=== PATIENT | male | born 1955 | race Caucasian/White ===

== ENCOUNTER 2022-07-06 01:57 | Inpatient (IN) | payer OTHER, MEDICAID ==
[~2022-07-06] VITALS: Ht 172.7 cm; Wt 72.6 kg
[2022-07-06] VITALS (29 sets, daily range): BP systolic 91–119
[~2022-07-06 01:57] MED LIST: CARB400T PO; FOLI-43 PO; MULT-518 PO; NAPR-1172 PO; OLAN20TA3 PO; PARO-148 PO; THIA100T13 PO
[2022-07-06] MEDS ORDERED: NACL 0.9% 1,000 ML IV ONE ×2 (02:15→04:30)
[2022-07-06 02:44] LABS: BASOPHILS # (AUTO) 0.1 K/uL (0.0-0.2); BASOPHILS % (AUTO) 0.3 % (0.0-2.0); HEMATOCRIT 33.2 % (36-54); HEMOGLOBIN 10.9 g/dL (14.0-18.0); LYMPHOCYTES # (AUTO) 1.8 K/uL (1.0-5.5); LYMPHOCYTES % (AUTO) 9.7 % (20.5-51.5); MEAN CORPUSCULAR HEMOGLOBIN 31 pg (27-31); MEAN CORPUSCULAR HGB CONC 33 % (32-36); MEAN CORPUSCULAR VOLUME 95 fL (79.0-98.0); MONOCYTES % (AUTO) 5.2 % (1.7-9.3); NEUTROPHILS # (AUTO) 16.1 K/uL (1.8-7.7); NEUTROPHILS % (AUTO) 84.8 % (40.0-70.0); PLATELET COUNT (AUTO) 362 K/uL (130-430); RED BLOOD CELL COUNT(AUTO) 3.49 MIL/uL (4.2-6.2); RED CELL DISTRIBUTION WIDTH 15.6 % (9.0-15.0)
[2022-07-06] MEDS ORDERED: LACT10SO7 PO (02:45)
[2022-07-06] MEDS ORDERED: ACET-73 PO (02:45)
[2022-07-06] MEDS ORDERED: APIX5TAB PO (02:45)
[2022-07-06] MEDS ORDERED: AMIO200T66 PO (02:45)
[2022-07-06] MEDS ORDERED: BEN50 PO (02:45)
[2022-07-06] MEDS ORDERED: INSU100V7 SUBCUT (02:45)
[2022-07-06] MEDS ORDERED: INSU100V53 SQ (02:45)
[2022-07-06] MEDS ORDERED: METO-442 PO (02:45)
[2022-07-06] MEDS ORDERED: IPRA4AER INH (02:45)
[2022-07-06] MEDS ORDERED: HYDR-4284 PO (02:45)
[2022-07-06] MEDS ORDERED: FURO-149 PO (02:45)
[2022-07-06] MEDS ORDERED: ALBU2.5V7 INH (02:45)
[2022-07-06] MEDS ORDERED: DIAZ10TA4 PO (02:45)
[2022-07-06] MEDS ORDERED: BISA-79 RC (02:45)
[2022-07-06] MEDS ORDERED: FAMO20TA8 PO (02:45)
[2022-07-06] MEDS ORDERED: DIGO125T PO (02:45)
[2022-07-06] MEDS ORDERED: DILT60TA3 PO (02:45)
[2022-07-06] MEDS ORDERED: DOCU-144 PO (02:45)
[2022-07-06] MEDS ORDERED: LEVE500S9 PO (02:45)
[2022-07-06 02:57] LABS: ANION GAP 12 (5-15); CALCIUM 9.9 mg/dL (8.4-11.0); CHLORIDE 116 mmol/L (98-107); CREATININE 1.77 mg/dL (0.55-1.30); GLUCOSE 329 mg/dL (70-99); UREA NITROGEN, BLOOD 48 mg/dL (8-21)
[2022-07-06 03:04] LABS: ALANINE AMINOTRANSFERASE 83 U/L (12-78); ASPARTATE AMINOTRANSFERASE 55 U/L (10-37); TOTAL BILIRUBIN 0.5 mg/dL (0.0-1.0)
[2022-07-06 03:10] LABS: GFR AFRICAN AMERICAN 50 mL/min (>90)
[2022-07-06 04:04] LABS: BILIRUBIN,URINE NEGATIVE (NEGATIVE); BLOOD, URINE 3+ (NEGATIVE); CLARITY/URINE CLEAR (CLEAR); COLOR,URINE YELLOW (YELLOW); GLUCOSE,URINE 1+ (NEGATIVE); KETONES,URINE NEGATIVE (NEGATIVE); LEUKOCYTE ESTERASE ,URINE TRACE (NEGATIVE); NITRITE, URINE NEGATIVE (NEGATIVE); PH,URINE 5.5 (5.0-8.0); PROTEIN URINE 1+ (NEGATIVE); UROBILINOGEN,URINE 0.2 (0.2-1.0)
[2022-07-06 05:03] LABS: DIGOXIN 0.8 ng/mL (0.80-2.00)
[2022-07-06 05:08] LABS: BACTERIA,URINE MODERATE /HPF (None Seen); MUCUS,URINE None Seen /LPF (None Seen); YEAST,URINE None Seen /HPF (None Seen)
[2022-07-06] MEDS ORDERED: D5/0.45 NS 1,000 ML IV SCH (05:30)
[2022-07-06] MEDS ORDERED: PROPOFOL DRIP 100 ML IV ONE ×2 (07:30→08:15)
[2022-07-06] MEDS ORDERED: NOREPINEPHRINE 4 MG/4 ML VIAL IV ONE (08:07)
[2022-07-06] MEDS ORDERED: ETOMIDATE 20 MG/ 10 ML VIAL (AMIDATE) IVP ONE (08:15)
[2022-07-06] MEDS ORDERED: SUCCINYLCHOLINE CHLORIDE 20 MG/ML(QUELICIN) IVP ONE (08:15)
[2022-07-06] MEDS ORDERED: NOREPINEPHRINE BITARTRATE 4 MG in D5W 246 ML IV PRN (09:00)
[2022-07-06] MEDS ORDERED: ENOXAPARIN SODIUM 30 MG/0.3 ML SYRINGE SUBCUT SCH (12:00)
[2022-07-06] MEDS: IPRATROPIUM/ALBUTEROL SULFATE 3 ML AMPUL.NEB (DUONEB) INH SCH ×4 (12:00→22:55)
[2022-07-06] MEDS ORDERED: *LOVENOX 1MG/KG Q12H/PHARMACY XX ONE (12:00)
[2022-07-06] MEDS ORDERED: PANTOPRAZOLE SODIUM 40 MG/VIAL (PROTONIX) IVP ONE (12:30)
[2022-07-06] MEDS ORDERED: ENOXAPARIN SODIUM 80 MG/0.8 ML SYRINGE SUBCUT ONE (13:00)
[2022-07-06] MEDS: PIPERACILLIN/TAZO 3.375/DEX-IS 50 ML IV SCH ×3 (14:05→23:52)
[2022-07-06] MEDS: NACL 0.9% 1,000 ML IV SCH ×2 (14:05→22:00)
[2022-07-06 16:47] LABS: CALCIUM 9.2 mg/dL (8.4-11.0); CREATININE 1.82 mg/dL (0.55-1.30)
[2022-07-06] MEDS: PROPOFOL DRIP 100 ML IV PRN (19:41)
[2022-07-06] MEDS: ACETAMINOPHEN 650 MG/20.3 ML UDC GT PRN (20:06)
[2022-07-06] MEDS: ENOXAPARIN SODIUM 80 MG/0.8 ML SYRINGE SUBCUT SCH (22:06)
[2022-07-07] VITALS (40 sets, daily range): BP systolic 90–123
[2022-07-07] MEDS: INSULIN REGULAR, HUMAN 100 UNITS/ML, 3 ML VIAL (humuLIN R) SUBCUT PRN ×5 (00:07→23:40)
[2022-07-07] MEDS: PROPOFOL DRIP 100 ML IV PRN ×4 (00:52→23:37)
[2022-07-07] MEDS: IPRATROPIUM/ALBUTEROL SULFATE 3 ML AMPUL.NEB (DUONEB) INH SCH ×4 (03:16→23:20)
[2022-07-07] MEDS: ACETAMINOPHEN 650 MG/20.3 ML UDC GT PRN ×2 (04:02→20:13)
[2022-07-07] MEDS ORDERED: ACETAMINOPHEN 650 MG/20.3 ML UDC ONE (04:04)
[2022-07-07] MEDS: PIPERACILLIN/TAZO 3.375/DEX-IS 50 ML IV SCH ×4 (05:23→22:48)
[2022-07-07 06:42] LABS: BASOPHILS # (AUTO) 0.1 K/uL (0.0-0.2); BASOPHILS % (AUTO) 0.4 % (0.0-2.0); EOSINOPHILS % (AUTO) 0.1 % (0.0-4.0); HEMOGLOBIN 9.9 g/dL (14.0-18.0); LYMPHOCYTES # (AUTO) 1.4 K/uL (1.0-5.5); LYMPHOCYTES % (AUTO) 7.2 % (20.5-51.5); MEAN CORPUSCULAR HEMOGLOBIN 31 pg (27-31); MEAN CORPUSCULAR HGB CONC 32 % (32-36); MEAN CORPUSCULAR VOLUME 97 fL (79.0-98.0); MONOCYTES # (AUTO) 0.8 K/uL (0.0-1.0); MONOCYTES % (AUTO) 4.3 % (1.7-9.3); NEUTROPHILS # (AUTO) 16.5 K/uL (1.8-7.7); PLATELET COUNT (AUTO) 333 K/uL (130-430); RED CELL DISTRIBUTION WIDTH 15.6 % (9.0-15.0); WHITE BLOOD COUNT (AUTO) 18.8 K/uL (4.8-10.8)
[2022-07-07 07:06] LABS: CALCIUM 9.1 mg/dL (8.4-11.0); CREATININE 1.65 mg/dL (0.55-1.30); PHOSPHORUS 2.3 mg/dL (2.7-4.5)
[2022-07-07] MEDS: NACL 0.9% 1,000 ML IV SCH (08:00)
[2022-07-07 08:24] LABS: ERYTHROCYTE SEDIMENTATION RATE 78 MM/HR (0-15)
[2022-07-07 09:08] LABS: C-REACTIVE PROTEIN QUANT 52.8 mg/dL (0-0.5)
[2022-07-07] MEDS: PANTOPRAZOLE SODIUM 40 MG/VIAL (PROTONIX) IVP SCH (10:10)
[2022-07-07] MEDS: ENOXAPARIN SODIUM 80 MG/0.8 ML SYRINGE SUBCUT SCH ×2 (10:10→20:12)
[2022-07-07] MEDS: D5W 1,000 ML IV SCH ×2 (12:42→22:48)
[2022-07-07] MEDS ORDERED: KCL 40 mEq in 100 mL (PREMIX) 100 ML IV ONE (12:45)
[2022-07-07] MEDS: NOREPINEPHRINE BITARTRATE 16 MG in NS 234 ML IV PRN (12:49)
[2022-07-07] MEDS ORDERED: DOXYCYCLINE HYCLATE 100 MG CAPSULE PO ONE (13:00)
[2022-07-07] MEDS ORDERED: K PHOS 15 MM in NS 250 ML IV ONE (17:00)
[2022-07-07] MEDS: DOXYCYCLINE HYCLATE 100 MG CAPSULE PO SCH (20:12)
[2022-07-08] VITALS (34 sets, daily range): BP systolic 95–137
[2022-07-08] MEDS: IPRATROPIUM/ALBUTEROL SULFATE 3 ML AMPUL.NEB (DUONEB) INH SCH ×6 (03:35→23:15)
[2022-07-08] MEDS: PROPOFOL DRIP 100 ML IV PRN ×3 (05:42→20:01)
[2022-07-08] MEDS: PIPERACILLIN/TAZO 3.375/DEX-IS 50 ML IV SCH ×4 (05:49→23:10)
[2022-07-08] MEDS: ACETAMINOPHEN 650 MG/20.3 ML UDC GT PRN ×2 (05:50→19:58)
[2022-07-08] MEDS: INSULIN REGULAR, HUMAN 100 UNITS/ML, 3 ML VIAL (humuLIN R) SUBCUT PRN ×4 (05:54→23:11)
[2022-07-08 07:57] LABS: BASOPHILS # (AUTO) 0.2 K/uL (0.0-0.2); BASOPHILS % (AUTO) 1.2 % (0.0-2.0); EOSINOPHILS # (AUTO) 0.4 K/uL (0.0-0.4); EOSINOPHILS % (AUTO) 1.8 % (0.0-4.0); HEMATOCRIT 29.9 % (36-54); HEMOGLOBIN 9.5 g/dL (14.0-18.0); LYMPHOCYTES % (AUTO) 5.3 % (20.5-51.5); MEAN CORPUSCULAR HEMOGLOBIN 31 pg (27-31); MEAN CORPUSCULAR HGB CONC 32 % (32-36); MEAN CORPUSCULAR VOLUME 96 fL (79.0-98.0); MONOCYTES # (AUTO) 0.6 K/uL (0.0-1.0); NEUTROPHILS # (AUTO) 17.5 K/uL (1.8-7.7); NEUTROPHILS % (AUTO) 88.7 % (40.0-70.0); PLATELET COUNT (AUTO) 306 K/uL (130-430); RED CELL DISTRIBUTION WIDTH 15.7 % (9.0-15.0); WHITE BLOOD COUNT (AUTO) 19.8 K/uL (4.8-10.8)
[2022-07-08 08:09] LABS: ALBUMIN 1.3 g/dL (3.4-4.8); BILIRUBIN,DIRECT 0.3 mg/dL (0.0-0.3); CALCIUM 8.8 mg/dL (8.4-11.0); CREATININE 1.52 mg/dL (0.55-1.30); PHOSPHORUS 1.9 mg/dL (2.7-4.5); TOTAL BILIRUBIN 0.4 mg/dL (0.0-1.0)
[2022-07-08] MEDS: ENOXAPARIN SODIUM 80 MG/0.8 ML SYRINGE SUBCUT SCH ×2 (09:14→20:01)
[2022-07-08] MEDS: PANTOPRAZOLE SODIUM 40 MG/VIAL (PROTONIX) IVP SCH (09:14)
[2022-07-08] MEDS: DOXYCYCLINE HYCLATE 100 MG CAPSULE PO SCH ×2 (09:15→20:01)
[2022-07-08] MEDS: D5W 1,000 ML IV SCH ×2 (09:16→18:40)
[2022-07-08 09:48] LABS: C-REACTIVE PROTEIN QUANT 35.4 mg/dL (0-0.5)
[2022-07-08 10:59] LABS: ERYTHROCYTE SEDIMENTATION RATE 77 MM/HR (0-15)
[2022-07-08] MEDS ORDERED: POTASSIUM CHLORIDE 40 MEQ in D5W 250 ML IV ONE (12:00)
[2022-07-08 18:06] LABS: HEPATITIS B CORE AB, TOTAL Negative (Negative); HEPATITIS B SURFACE AG Negative (Negative); HEPATITIS C VIRUS AB Non Reactive (Non Reactive)
[2022-07-09] VITALS (37 sets, daily range): BP systolic 94–142
[2022-07-09] MEDS ORDERED: PROPOFOL DRIP 100 ML IV ONE (03:25)
[2022-07-09] MEDS: IPRATROPIUM/ALBUTEROL SULFATE 3 ML AMPUL.NEB (DUONEB) INH SCH ×6 (03:45→23:21)
[2022-07-09] MEDS: D5W 1,000 ML IV SCH ×2 (04:39→14:52)
[2022-07-09] MEDS: PIPERACILLIN/TAZO 3.375/DEX-IS 50 ML IV SCH ×3 (05:26→17:34)
[2022-07-09] MEDS: INSULIN REGULAR, HUMAN 100 UNITS/ML, 3 ML VIAL (humuLIN R) SUBCUT PRN ×3 (05:29→17:37)
[2022-07-09 06:35] LABS: BASOPHILS # (AUTO) 0.1 K/uL (0.0-0.2); BASOPHILS % (AUTO) 0.6 % (0.0-2.0); EOSINOPHILS # (AUTO) 0.6 K/uL (0.0-0.4); HEMATOCRIT 28.7 % (36-54); LYMPHOCYTES # (AUTO) 1.1 K/uL (1.0-5.5); MEAN CORPUSCULAR HEMOGLOBIN 30 pg (27-31); MEAN CORPUSCULAR HGB CONC 31 % (32-36); MEAN CORPUSCULAR VOLUME 97 fL (79.0-98.0); MONOCYTES # (AUTO) 0.5 K/uL (0.0-1.0); MONOCYTES % (AUTO) 2.6 % (1.7-9.3); NEUTROPHILS # (AUTO) 18.7 K/uL (1.8-7.7); NEUTROPHILS % (AUTO) 88.8 % (40.0-70.0); PLATELET COUNT (AUTO) 295 K/uL (130-430); RED BLOOD CELL COUNT(AUTO) 2.97 MIL/uL (4.2-6.2); RED CELL DISTRIBUTION WIDTH 15.9 % (9.0-15.0)
[2022-07-09 07:20] LABS: ALBUMIN 1.4 g/dL (3.4-4.8); CALCIUM 8.6 mg/dL (8.4-11.0); CREATININE 1.44 mg/dL (0.55-1.30); PHOSPHORUS 2.6 mg/dL (2.7-4.5); TOTAL BILIRUBIN 0.5 mg/dL (0.0-1.0)
[2022-07-09 09:17] LABS: C-REACTIVE PROTEIN QUANT 27.3 mg/dL (0-0.5)
[2022-07-09] MEDS: ENOXAPARIN SODIUM 80 MG/0.8 ML SYRINGE SUBCUT SCH ×2 (09:34→21:41)
[2022-07-09] MEDS: PANTOPRAZOLE SODIUM 40 MG/VIAL (PROTONIX) IVP SCH (09:34)
[2022-07-09] MEDS: DOXYCYCLINE HYCLATE 100 MG CAPSULE PO SCH ×2 (09:34→21:33)
[2022-07-09] MEDS: BALSAM PERU/CASTOR OIL 56.7 GM OINT...G. TP SCH (09:36)
[2022-07-09 10:33] LABS: ERYTHROCYTE SEDIMENTATION RATE 62 MM/HR (0-15)
[2022-07-09] MEDS ORDERED: K PHOS 30 MM in NS 250 ML IV ONE (11:00)
[2022-07-09] MEDS ORDERED: POTASSIUM CHLORIDE 20 MEQ TAB.PRT.SR PO ONE (12:00)
[2022-07-09] MEDS ORDERED: KCL 40 mEq in 100 mL (PREMIX) 100 ML IV ONE (16:00)
[2022-07-09] MEDS: NOREPINEPHRINE BITARTRATE 16 MG in NS 234 ML IV PRN (17:38)
[2022-07-09] MEDS: PROPOFOL DRIP 100 ML IV PRN (18:37)
[2022-07-10] VITALS (35 sets, daily range): BP systolic 99–133
[2022-07-10] MEDS: PIPERACILLIN/TAZO 3.375/DEX-IS 50 ML IV SCH ×2 (02:21→05:43)
[2022-07-10] MEDS: D5W 1,000 ML IV SCH (02:22)
[2022-07-10] MEDS: PROPOFOL DRIP 100 ML IV PRN ×5 (02:24→18:59)
[2022-07-10] MEDS: INSULIN REGULAR, HUMAN 100 UNITS/ML, 3 ML VIAL (humuLIN R) SUBCUT PRN ×5 (02:35→23:45)
[2022-07-10] MEDS: IPRATROPIUM/ALBUTEROL SULFATE 3 ML AMPUL.NEB (DUONEB) INH SCH ×7 (03:20→23:15)
[2022-07-10 06:41] LABS: BASOPHILS # (AUTO) 0.1 K/uL (0.0-0.2); BASOPHILS % (AUTO) 0.4 % (0.0-2.0); EOSINOPHILS # (AUTO) 0.6 K/uL (0.0-0.4); EOSINOPHILS % (AUTO) 3.1 % (0.0-4.0); HEMATOCRIT 28.3 % (36-54); LYMPHOCYTES % (AUTO) 5.6 % (20.5-51.5); MEAN CORPUSCULAR HEMOGLOBIN 31 pg (27-31); MEAN CORPUSCULAR HGB CONC 32 % (32-36); MEAN CORPUSCULAR VOLUME 97 fL (79.0-98.0); MONOCYTES # (AUTO) 0.6 K/uL (0.0-1.0); MONOCYTES % (AUTO) 3.5 % (1.7-9.3); NEUTROPHILS # (AUTO) 15.9 K/uL (1.8-7.7); NEUTROPHILS % (AUTO) 87.4 % (40.0-70.0); PLATELET COUNT (AUTO) 259 K/uL (130-430); RED BLOOD CELL COUNT(AUTO) 2.91 MIL/uL (4.2-6.2); RED CELL DISTRIBUTION WIDTH 15.5 % (9.0-15.0); WHITE BLOOD COUNT (AUTO) 18.1 K/uL (4.8-10.8)
[2022-07-10 07:51] LABS: ERYTHROCYTE SEDIMENTATION RATE 67 MM/HR (0-15)
[2022-07-10] MEDS: LEVOFLOXACIN 250 MG/D5W 50 ML IV SCH (09:14)
[2022-07-10] MEDS: PANTOPRAZOLE SODIUM 40 MG/VIAL (PROTONIX) IVP SCH (09:14)
[2022-07-10] MEDS: DOXYCYCLINE HYCLATE 100 MG CAPSULE PO SCH ×2 (09:16→22:20)
[2022-07-10] MEDS: BALSAM PERU/CASTOR OIL 56.7 GM OINT...G. TP SCH (09:16)
[2022-07-10] MEDS: ENOXAPARIN SODIUM 80 MG/0.8 ML SYRINGE SUBCUT SCH ×2 (09:17→22:21)
[2022-07-10 09:40] LABS: ALBUMIN 1.3 g/dL (3.4-4.8); C-REACTIVE PROTEIN QUANT 24.9 mg/dL (0-0.5); CALCIUM 8.5 mg/dL (8.4-11.0); CREATININE 1.38 mg/dL (0.55-1.30); PHOSPHORUS 3.4 mg/dL (2.7-4.5); TOTAL BILIRUBIN 0.4 mg/dL (0.0-1.0)
[2022-07-10] MEDS: NOREPINEPHRINE BITARTRATE 16 MG in NS 234 ML IV PRN (11:46)
[2022-07-10] MEDS ORDERED: INSULIN NPH 100 UNITS/ML 10 ML VIAL SUBCUT ONE ×2 (13:45→14:00)
[2022-07-10] MEDS ORDERED: METOPROLOL TARTRATE 25 MG TABLET NG ONE (16:45)
[2022-07-10] MEDS ORDERED: DIGOXIN 0.5 MG/2 ML AMP IVP ONE (17:30)
[2022-07-10] MEDS: ACETAMINOPHEN 650 MG/20.3 ML UDC GT PRN (17:41)
[2022-07-10] MEDS ORDERED: INSULIN NPH 100 UNITS/ML 10 ML VIAL SUBCUT SCH ×2 (21:00)
[2022-07-10] MEDS ORDERED: INSULIN GLARGINE 100 UNITS/ML, 10 ML VIAL SUBCUT SCH (21:00)
[2022-07-11] VITALS (32 sets, daily range): BP systolic 90–126
[2022-07-11] MEDS ORDERED: METOPROLOL TARTRATE 25 MG TABLET NG SCH
[2022-07-11] MEDS: IPRATROPIUM/ALBUTEROL SULFATE 3 ML AMPUL.NEB (DUONEB) INH SCH ×6 (03:21→23:34)
[2022-07-11] MEDS ORDERED: INSULIN GLARGINE 100 UNITS/ML, 10 ML VIAL SUBCUT SCH (09:00)
[2022-07-11] MEDS: INSULIN NPH 100 UNITS/ML 10 ML VIAL SUBCUT SCH ×2 (09:00→21:16)
[2022-07-11] MEDS: BALSAM PERU/CASTOR OIL 56.7 GM OINT...G. TP SCH (09:00)
[2022-07-11 09:21] LABS: C-REACTIVE PROTEIN QUANT 16.9 mg/dL (0-0.5); CALCIUM 9.1 mg/dL (8.4-11.0); CREATININE 1.35 mg/dL (0.55-1.30)
[2022-07-11] MEDS: LEVOFLOXACIN 250 MG/D5W 50 ML IV SCH (09:32)
[2022-07-11] MEDS: PANTOPRAZOLE SODIUM 40 MG/VIAL (PROTONIX) IVP SCH (09:33)
[2022-07-11] MEDS: DOXYCYCLINE HYCLATE 100 MG CAPSULE PO SCH ×2 (09:33→21:15)
[2022-07-11] MEDS: ENOXAPARIN SODIUM 80 MG/0.8 ML SYRINGE SUBCUT SCH ×2 (09:34→21:15)
[2022-07-11 10:18] LABS: BASOPHILS # (AUTO) 0.2 K/uL (0.0-0.2); BASOPHILS % (AUTO) 1.3 % (0.0-2.0); EOSINOPHILS # (AUTO) 0.4 K/uL (0.0-0.4); EOSINOPHILS % (AUTO) 2.7 % (0.0-4.0); HEMATOCRIT 30.5 % (36-54); HEMOGLOBIN 9.7 g/dL (14.0-18.0); LYMPHOCYTES # (AUTO) 1.5 K/uL (1.0-5.5); LYMPHOCYTES % (AUTO) 10.1 % (20.5-51.5); MEAN CORPUSCULAR HEMOGLOBIN 30 pg (27-31); MEAN CORPUSCULAR HGB CONC 32 % (32-36); MEAN CORPUSCULAR VOLUME 95 fL (79.0-98.0); MONOCYTES # (AUTO) 0.6 K/uL (0.0-1.0); NEUTROPHILS # (AUTO) 12.3 K/uL (1.8-7.7); NEUTROPHILS % (AUTO) 81.9 % (40.0-70.0); PLATELET COUNT (AUTO) 279 K/uL (130-430); RED BLOOD CELL COUNT(AUTO) 3.21 MIL/uL (4.2-6.2); RED CELL DISTRIBUTION WIDTH 15.6 % (9.0-15.0)
[2022-07-11 10:22] LABS: ERYTHROCYTE SEDIMENTATION RATE 85 MM/HR (0-15)
[2022-07-11] MEDS ORDERED: INSULIN REGULAR, HUMAN 100 UNITS/ML, 3 ML VIAL SUBCUT SCH (12:00)
[2022-07-11] MEDS: PROPOFOL DRIP 100 ML IV PRN ×2 (12:14→17:02)
[2022-07-11] MEDS: INSULIN REGULAR, HUMAN 100 UNITS/ML, 3 ML VIAL (humuLIN R) SUBCUT PRN ×2 (12:49→17:16)
[2022-07-11] MEDS: 0.45% NACL 1,000 ML IV SCH ×2 (12:53→21:19)
[2022-07-11] MEDS: ACETAMINOPHEN 650 MG/20.3 ML UDC GT PRN (14:28)
[2022-07-12] VITALS (33 sets, daily range): BP systolic 85–126
[2022-07-12] MEDS: IPRATROPIUM/ALBUTEROL SULFATE 3 ML AMPUL.NEB (DUONEB) INH SCH ×6 (03:57→23:09)
[2022-07-12] MEDS: 0.45% NACL 1,000 ML IV SCH ×2 (05:52→17:25)
[2022-07-12] MEDS: INSULIN REGULAR, HUMAN 100 UNITS/ML, 3 ML VIAL (humuLIN R) SUBCUT PRN ×3 (06:01→18:12)
[2022-07-12 06:46] LABS: EOSINOPHILS # (AUTO) 0.4 K/uL (0.0-0.4); HEMATOCRIT 29.5 % (36-54); HEMOGLOBIN 9.6 g/dL (14.0-18.0); LYMPHOCYTES # (AUTO) 2.5 K/uL (1.0-5.5); LYMPHOCYTES % (AUTO) 17.4 % (20.5-51.5); MEAN CORPUSCULAR HEMOGLOBIN 31 pg (27-31); MEAN CORPUSCULAR HGB CONC 33 % (32-36); MEAN CORPUSCULAR VOLUME 95 fL (79.0-98.0); MONOCYTES # (AUTO) 0.7 K/uL (0.0-1.0); MONOCYTES % (AUTO) 5.1 % (1.7-9.3); PLATELET COUNT (AUTO) 280 K/uL (130-430); RED BLOOD CELL COUNT(AUTO) 3.11 MIL/uL (4.2-6.2); RED CELL DISTRIBUTION WIDTH 15.4 % (9.0-15.0); WHITE BLOOD COUNT (AUTO) 14.6 K/uL (4.8-10.8)
[2022-07-12 07:29] LABS: ALBUMIN 1.5 g/dL (3.4-4.8); C-REACTIVE PROTEIN QUANT 7.6 mg/dL (0-0.5); CREATININE 1.34 mg/dL (0.55-1.30); PHOSPHORUS 2.8 mg/dL (2.7-4.5); TOTAL BILIRUBIN 0.3 mg/dL (0.0-1.0)
[2022-07-12] MEDS: NOREPINEPHRINE BITARTRATE 16 MG in NS 234 ML IV PRN (07:50)
[2022-07-12 07:58] LABS: BASOPHILS % (AUTO) 0.5 % (0.0-2.0)
[2022-07-12 08:01] LABS: NEUTROPHILS # (AUTO) 10.8 K/uL (1.8-7.7)
[2022-07-12] MEDS: INSULIN NPH 100 UNITS/ML 10 ML VIAL SUBCUT SCH ×2 (09:28→21:45)
[2022-07-12] MEDS: PANTOPRAZOLE SODIUM 40 MG/VIAL (PROTONIX) IVP SCH (09:29)
[2022-07-12] MEDS: DOXYCYCLINE HYCLATE 100 MG CAPSULE PO SCH ×2 (09:29→20:14)
[2022-07-12] MEDS: ENOXAPARIN SODIUM 80 MG/0.8 ML SYRINGE SUBCUT SCH ×2 (09:29→20:15)
[2022-07-12] MEDS: LEVOFLOXACIN 250 MG/D5W 50 ML IV SCH (09:29)
[2022-07-12] MEDS: BALSAM PERU/CASTOR OIL 56.7 GM OINT...G. TP SCH (09:30)
[2022-07-12] MEDS ORDERED: POTASSIUM CHLORIDE 20 MEQ TAB.PRT.SR NG ONE (09:45)
[2022-07-12] MEDS ORDERED: POTASSIUM CHLORIDE 20 MEQ/PKT PACKET NG ONE (10:00)
[2022-07-12 10:27] LABS: ERYTHROCYTE SEDIMENTATION RATE 68 MM/HR (0-15)
[2022-07-12] MEDS: PROPOFOL DRIP 100 ML IV PRN ×3 (10:39→21:26)
[2022-07-12] MEDS ORDERED: DILTIAZEM HCL 30 MG TABLET PO ONE (14:00)
[2022-07-12] MEDS: DILTIAZEM HCL 30 MG TABLET PO SCH (18:11)
[2022-07-13] VITALS (34 sets, daily range): BP systolic 84–132
[2022-07-13] MEDS: DILTIAZEM HCL 30 MG TABLET PO SCH ×5 (00:40→23:51)
[2022-07-13] MEDS: PROPOFOL DRIP 100 ML IV PRN ×3 (02:38→14:06)
[2022-07-13] MEDS: IPRATROPIUM/ALBUTEROL SULFATE 3 ML AMPUL.NEB (DUONEB) INH SCH ×6 (03:06→23:11)
[2022-07-13] MEDS: 0.45% NACL 1,000 ML IV SCH ×3 (03:15→23:50)
[2022-07-13] MEDS: INSULIN REGULAR, HUMAN 100 UNITS/ML, 3 ML VIAL (humuLIN R) SUBCUT PRN ×4 (06:11→21:02)
[2022-07-13 06:50] LABS: BASOPHILS # (AUTO) 0.1 K/uL (0.0-0.2); BASOPHILS % (AUTO) 0.5 % (0.0-2.0); EOSINOPHILS # (AUTO) 0.4 K/uL (0.0-0.4); EOSINOPHILS % (AUTO) 2.6 % (0.0-4.0); HEMATOCRIT 27.2 % (36-54); HEMOGLOBIN 8.7 g/dL (14.0-18.0); LYMPHOCYTES # (AUTO) 2.2 K/uL (1.0-5.5); LYMPHOCYTES % (AUTO) 14.3 % (20.5-51.5); MEAN CORPUSCULAR HEMOGLOBIN 30 pg (27-31); MEAN CORPUSCULAR HGB CONC 32 % (32-36); MEAN CORPUSCULAR VOLUME 95 fL (79.0-98.0); MONOCYTES # (AUTO) 0.6 K/uL (0.0-1.0); MONOCYTES % (AUTO) 4.3 % (1.7-9.3); NEUTROPHILS # (AUTO) 11.8 K/uL (1.8-7.7); NEUTROPHILS % (AUTO) 78.3 % (40.0-70.0); PLATELET COUNT (AUTO) 292 K/uL (130-430); RED BLOOD CELL COUNT(AUTO) 2.86 MIL/uL (4.2-6.2); RED CELL DISTRIBUTION WIDTH 15.6 % (9.0-15.0); WHITE BLOOD COUNT (AUTO) 15.1 K/uL (4.8-10.8)
[2022-07-13 06:56] LABS: C-REACTIVE PROTEIN QUANT 3.6 mg/dL (0-0.5); CALCIUM 8.3 mg/dL (8.4-11.0); CREATININE 1.1 mg/dL (0.55-1.30)
[2022-07-13 08:27] LABS: ERYTHROCYTE SEDIMENTATION RATE 57 MM/HR (0-15)
[2022-07-13] MEDS: INSULIN NPH 100 UNITS/ML 10 ML VIAL SUBCUT SCH ×2 (08:56→20:58)
[2022-07-13] MEDS: ENOXAPARIN SODIUM 80 MG/0.8 ML SYRINGE SUBCUT SCH ×2 (08:57→20:59)
[2022-07-13] MEDS: PANTOPRAZOLE SODIUM 40 MG/VIAL (PROTONIX) IVP SCH (08:58)
[2022-07-13] MEDS: DOXYCYCLINE HYCLATE 100 MG CAPSULE PO SCH ×2 (08:58→20:56)
[2022-07-13] MEDS: LEVOFLOXACIN 250 MG/D5W 50 ML IV SCH (08:58)
[2022-07-13] MEDS: BALSAM PERU/CASTOR OIL 56.7 GM OINT...G. TP SCH (08:58)
[2022-07-13] MEDS ORDERED: POTASSIUM CHLORIDE 40 MEQ in NS 250 ML IV ONE (11:00)
[2022-07-13] MEDS: ACETAMINOPHEN 650 MG/20.3 ML UDC GT PRN (13:06)
[2022-07-13] MEDS: NOREPINEPHRINE BITARTRATE 16 MG in NS 234 ML IV PRN (14:43)
[2022-07-14] VITALS (33 sets, daily range): BP systolic 92–132
[2022-07-14] MEDS: IPRATROPIUM/ALBUTEROL SULFATE 3 ML AMPUL.NEB (DUONEB) INH SCH ×4 (03:39→14:56)
[2022-07-14] MEDS: DILTIAZEM HCL 30 MG TABLET PO SCH ×3 (05:48→17:55)
[2022-07-14 06:50] LABS: BASOPHILS # (AUTO) 0.1 K/uL (0.0-0.2); BASOPHILS % (AUTO) 0.8 % (0.0-2.0); EOSINOPHILS # (AUTO) 0.2 K/uL (0.0-0.4); EOSINOPHILS % (AUTO) 1.5 % (0.0-4.0); HEMATOCRIT 27.8 % (36-54); HEMOGLOBIN 8.9 g/dL (14.0-18.0); LYMPHOCYTES # (AUTO) 2.2 K/uL (1.0-5.5); LYMPHOCYTES % (AUTO) 14.8 % (20.5-51.5); MEAN CORPUSCULAR HEMOGLOBIN 30 pg (27-31); MEAN CORPUSCULAR HGB CONC 32 % (32-36); MEAN CORPUSCULAR VOLUME 94 fL (79.0-98.0); MONOCYTES # (AUTO) 0.5 K/uL (0.0-1.0); MONOCYTES % (AUTO) 3.6 % (1.7-9.3); NEUTROPHILS # (AUTO) 11.6 K/uL (1.8-7.7); NEUTROPHILS % (AUTO) 79.3 % (40.0-70.0); PLATELET COUNT (AUTO) 314 K/uL (130-430); RED BLOOD CELL COUNT(AUTO) 2.95 MIL/uL (4.2-6.2); RED CELL DISTRIBUTION WIDTH 15.5 % (9.0-15.0); WHITE BLOOD COUNT (AUTO) 14.7 K/uL (4.8-10.8)
[2022-07-14 07:17] LABS: ERYTHROCYTE SEDIMENTATION RATE 60 MM/HR (0-15)
[2022-07-14 07:21] LABS: C-REACTIVE PROTEIN QUANT 3.5 mg/dL (0-0.5); CALCIUM 8.4 mg/dL (8.4-11.0); CREATININE 0.96 mg/dL (0.55-1.30); PHOSPHORUS 3.4 mg/dL (2.7-4.5)
[2022-07-14] MEDS: INSULIN NPH 100 UNITS/ML 10 ML VIAL SUBCUT SCH ×2 (09:00→20:53)
[2022-07-14] MEDS: LEVOFLOXACIN 250 MG/D5W 50 ML IV SCH (09:50)
[2022-07-14] MEDS: PANTOPRAZOLE SODIUM 40 MG/VIAL (PROTONIX) IVP SCH (09:50)
[2022-07-14] MEDS: BALSAM PERU/CASTOR OIL 56.7 GM OINT...G. TP SCH (09:50)
[2022-07-14] MEDS: 0.45% NACL 1,000 ML IV SCH (09:50)
[2022-07-14] MEDS: ENOXAPARIN SODIUM 80 MG/0.8 ML SYRINGE SUBCUT SCH ×2 (09:51→20:53)
[2022-07-14] MEDS ORDERED: POTASSIUM CHLORIDE 20 MEQ/PKT PACKET NG ONE (10:00)
[2022-07-14] MEDS: INSULIN REGULAR, HUMAN 100 UNITS/ML, 3 ML VIAL (humuLIN R) SUBCUT PRN (12:31)
[2022-07-14] MEDS: PROPOFOL DRIP 100 ML IV PRN (16:44)
[2022-07-15] VITALS (32 sets, daily range): BP systolic 94–115
[2022-07-15] MEDS: INSULIN REGULAR, HUMAN 100 UNITS/ML, 3 ML VIAL (humuLIN R) SUBCUT PRN ×4 (00:14→18:17)
[2022-07-15] MEDS: DILTIAZEM HCL 30 MG TABLET PO SCH ×4 (00:25→18:14)
[2022-07-15] MEDS: PROPOFOL DRIP 100 ML IV PRN ×4 (01:33→18:08)
[2022-07-15 06:54] LABS: BASOPHILS # (AUTO) 0.1 K/uL (0.0-0.2); BASOPHILS % (AUTO) 0.5 % (0.0-2.0); EOSINOPHILS # (AUTO) 0.1 K/uL (0.0-0.4); EOSINOPHILS % (AUTO) 0.5 % (0.0-4.0); HEMATOCRIT 26.6 % (36-54); HEMOGLOBIN 8.6 g/dL (14.0-18.0); LYMPHOCYTES # (AUTO) 2.2 K/uL (1.0-5.5); LYMPHOCYTES % (AUTO) 15.6 % (20.5-51.5); MEAN CORPUSCULAR HEMOGLOBIN 31 pg (27-31); MEAN CORPUSCULAR HGB CONC 32 % (32-36); MEAN CORPUSCULAR VOLUME 95 fL (79.0-98.0); MONOCYTES # (AUTO) 0.4 K/uL (0.0-1.0); MONOCYTES % (AUTO) 2.5 % (1.7-9.3); NEUTROPHILS # (AUTO) 11.2 K/uL (1.8-7.7); NEUTROPHILS % (AUTO) 80.9 % (40.0-70.0); PLATELET COUNT (AUTO) 308 K/uL (130-430); RED BLOOD CELL COUNT(AUTO) 2.81 MIL/uL (4.2-6.2); RED CELL DISTRIBUTION WIDTH 15.9 % (9.0-15.0); WHITE BLOOD COUNT (AUTO) 13.8 K/uL (4.8-10.8)
[2022-07-15] MEDS: IPRATROPIUM/ALBUTEROL SULFATE 3 ML AMPUL.NEB (DUONEB) INH SCH ×5 (07:20→23:13)
[2022-07-15 07:36] LABS: ALBUMIN 1.4 g/dL (3.4-4.8); C-REACTIVE PROTEIN QUANT 4.7 mg/dL (0-0.5); CALCIUM 8.6 mg/dL (8.4-11.0); CREATININE 0.97 mg/dL (0.55-1.30); TOTAL BILIRUBIN 0.3 mg/dL (0.0-1.0)
[2022-07-15 08:07] LABS: ERYTHROCYTE SEDIMENTATION RATE 58 MM/HR (0-15)
[2022-07-15] MEDS ORDERED: NOREPINEPHRINE 4 MG/4 ML VIAL IV ONE (09:33)
[2022-07-15] MEDS: PANTOPRAZOLE SODIUM 40 MG/VIAL (PROTONIX) IVP SCH (09:49)
[2022-07-15] MEDS: LEVOFLOXACIN 250 MG/D5W 50 ML IV SCH (09:51)
[2022-07-15] MEDS: ENOXAPARIN SODIUM 80 MG/0.8 ML SYRINGE SUBCUT SCH ×2 (09:52→21:17)
[2022-07-15] MEDS: NOREPINEPHRINE BITARTRATE 16 MG in NS 234 ML IV PRN (09:55)
[2022-07-15] MEDS: INSULIN NPH 100 UNITS/ML 10 ML VIAL SUBCUT SCH ×2 (09:55→21:52)
[2022-07-15] MEDS ORDERED: POTASSIUM CHLORIDE 20 MEQ TAB.PRT.SR NG ONE (10:15)
[2022-07-15] MEDS: BALSAM PERU/CASTOR OIL 56.7 GM OINT...G. TP SCH (16:10)
[2022-07-16] VITALS (31 sets, daily range): BP systolic 86–117
[2022-07-16] MEDS: DILTIAZEM HCL 30 MG TABLET PO SCH ×4 (00:52→17:37)
[2022-07-16] MEDS: INSULIN REGULAR, HUMAN 100 UNITS/ML, 3 ML VIAL (humuLIN R) SUBCUT PRN ×3 (01:13→12:26)
[2022-07-16] MEDS: PROPOFOL DRIP 100 ML IV PRN ×3 (01:23→15:57)
[2022-07-16] MEDS: IPRATROPIUM/ALBUTEROL SULFATE 3 ML AMPUL.NEB (DUONEB) INH SCH ×6 (03:01→22:58)
[2022-07-16 07:08] LABS: BASOPHILS # (AUTO) 0.1 K/uL (0.0-0.2); BASOPHILS % (AUTO) 0.6 % (0.0-2.0); EOSINOPHILS # (AUTO) 0.1 K/uL (0.0-0.4); EOSINOPHILS % (AUTO) 0.6 % (0.0-4.0); HEMATOCRIT 25.9 % (36-54); HEMOGLOBIN 8.3 g/dL (14.0-18.0); LYMPHOCYTES % (AUTO) 14.1 % (20.5-51.5); MEAN CORPUSCULAR HEMOGLOBIN 31 pg (27-31); MEAN CORPUSCULAR HGB CONC 32 % (32-36); MEAN CORPUSCULAR VOLUME 96 fL (79.0-98.0); MONOCYTES # (AUTO) 0.4 K/uL (0.0-1.0); MONOCYTES % (AUTO) 2.9 % (1.7-9.3); NEUTROPHILS # (AUTO) 11.7 K/uL (1.8-7.7); NEUTROPHILS % (AUTO) 81.8 % (40.0-70.0); PLATELET COUNT (AUTO) 311 K/uL (130-430); RED BLOOD CELL COUNT(AUTO) 2.71 MIL/uL (4.2-6.2); RED CELL DISTRIBUTION WIDTH 15.7 % (9.0-15.0); WHITE BLOOD COUNT (AUTO) 14.3 K/uL (4.8-10.8)
[2022-07-16 07:22] LABS: ALBUMIN 1.5 g/dL (3.4-4.8); C-REACTIVE PROTEIN QUANT 4.1 mg/dL (0-0.5); CALCIUM 8.7 mg/dL (8.4-11.0); CREATININE 1.05 mg/dL (0.55-1.30); PHOSPHORUS 3.2 mg/dL (2.7-4.5); TOTAL BILIRUBIN 0.3 mg/dL (0.0-1.0)
[2022-07-16 08:56] LABS: ERYTHROCYTE SEDIMENTATION RATE 50 MM/HR (0-15)
[2022-07-16] MEDS: LEVOFLOXACIN 250 MG/D5W 50 ML IV SCH (09:12)
[2022-07-16] MEDS: ENOXAPARIN SODIUM 80 MG/0.8 ML SYRINGE SUBCUT SCH ×2 (09:13→20:27)
[2022-07-16] MEDS: PANTOPRAZOLE SODIUM 40 MG/VIAL (PROTONIX) IVP SCH (09:13)
[2022-07-16] MEDS: BALSAM PERU/CASTOR OIL 56.7 GM OINT...G. TP SCH (09:14)
[2022-07-16] MEDS: INSULIN NPH 100 UNITS/ML 10 ML VIAL SUBCUT SCH ×2 (09:21→20:49)
[2022-07-16] MEDS ORDERED: POTASSIUM CHLORIDE 20 MEQ/PKT PACKET NG ONE (10:15)
[2022-07-17] VITALS (33 sets, daily range): BP systolic 91–143
[2022-07-17] MEDS: PROPOFOL DRIP 100 ML IV PRN ×2 (02:17→19:56)
[2022-07-17] MEDS: IPRATROPIUM/ALBUTEROL SULFATE 3 ML AMPUL.NEB (DUONEB) INH SCH ×6 (02:23→23:20)
[2022-07-17 06:00] LABS: BASOPHILS # (AUTO) 0.1 K/uL (0.0-0.2); BASOPHILS % (AUTO) 0.6 % (0.0-2.0); EOSINOPHILS # (AUTO) 0.1 K/uL (0.0-0.4); EOSINOPHILS % (AUTO) 0.6 % (0.0-4.0); HEMATOCRIT 28.8 % (36-54); LYMPHOCYTES # (AUTO) 2.2 K/uL (1.0-5.5); LYMPHOCYTES % (AUTO) 18.3 % (20.5-51.5); MEAN CORPUSCULAR HEMOGLOBIN 31 pg (27-31); MEAN CORPUSCULAR HGB CONC 32 % (32-36); MEAN CORPUSCULAR VOLUME 97 fL (79.0-98.0); MONOCYTES # (AUTO) 0.5 K/uL (0.0-1.0); MONOCYTES % (AUTO) 4.2 % (1.7-9.3); NEUTROPHILS % (AUTO) 76.3 % (40.0-70.0); PLATELET COUNT (AUTO) 285 K/uL (130-430); RED BLOOD CELL COUNT(AUTO) 2.96 MIL/uL (4.2-6.2); RED CELL DISTRIBUTION WIDTH 16.2 % (9.0-15.0); WHITE BLOOD COUNT (AUTO) 11.8 K/uL (4.8-10.8)
[2022-07-17] MEDS: DILTIAZEM HCL 30 MG TABLET PO SCH ×4 (06:00→18:13)
[2022-07-17 06:27] LABS: ALBUMIN 1.5 g/dL (3.4-4.8); C-REACTIVE PROTEIN QUANT 2.7 mg/dL (0-0.5); CREATININE 0.95 mg/dL (0.55-1.30); PHOSPHORUS 3.2 mg/dL (2.7-4.5); TOTAL BILIRUBIN 0.3 mg/dL (0.0-1.0)
[2022-07-17] MEDS: INSULIN REGULAR, HUMAN 100 UNITS/ML, 3 ML VIAL (humuLIN R) SUBCUT PRN ×2 (06:54→23:58)
[2022-07-17 07:42] LABS: ERYTHROCYTE SEDIMENTATION RATE 65 MM/HR (0-15)
[2022-07-17] MEDS: LEVOFLOXACIN 250 MG/D5W 50 ML IV SCH (08:58)
[2022-07-17] MEDS: PANTOPRAZOLE SODIUM 40 MG/VIAL (PROTONIX) IVP SCH (08:58)
[2022-07-17] MEDS: ENOXAPARIN SODIUM 80 MG/0.8 ML SYRINGE SUBCUT SCH ×2 (08:59→20:59)
[2022-07-17] MEDS: BALSAM PERU/CASTOR OIL 56.7 GM OINT...G. TP SCH (08:59)
[2022-07-17] MEDS: INSULIN NPH 100 UNITS/ML 10 ML VIAL SUBCUT SCH ×2 (09:06→20:58)
[2022-07-18] VITALS (33 sets, daily range): BP systolic 91–142
[2022-07-18] MEDS: DILTIAZEM HCL 30 MG TABLET PO SCH ×5 (00:01→23:43)
[2022-07-18] MEDS: IPRATROPIUM/ALBUTEROL SULFATE 3 ML AMPUL.NEB (DUONEB) INH SCH ×6 (03:30→23:10)
[2022-07-18 06:50] LABS: C-REACTIVE PROTEIN QUANT 2.5 mg/dL (0-0.5); CALCIUM 9.1 mg/dL (8.4-11.0); CREATININE 0.81 mg/dL (0.55-1.30)
[2022-07-18 07:30] LABS: BASOPHILS # (AUTO) 0.1 K/uL (0.0-0.2); BASOPHILS % (AUTO) 0.9 % (0.0-2.0); EOSINOPHILS # (AUTO) 0.1 K/uL (0.0-0.4); EOSINOPHILS % (AUTO) 0.8 % (0.0-4.0); HEMATOCRIT 25.3 % (36-54); HEMOGLOBIN 8.3 g/dL (14.0-18.0); LYMPHOCYTES # (AUTO) 1.4 K/uL (1.0-5.5); LYMPHOCYTES % (AUTO) 13.1 % (20.5-51.5); MEAN CORPUSCULAR HEMOGLOBIN 32 pg (27-31); MEAN CORPUSCULAR HGB CONC 33 % (32-36); MEAN CORPUSCULAR VOLUME 98 fL (79.0-98.0); MONOCYTES # (AUTO) 0.5 K/uL (0.0-1.0); MONOCYTES % (AUTO) 4.7 % (1.7-9.3); NEUTROPHILS # (AUTO) 8.7 K/uL (1.8-7.7); NEUTROPHILS % (AUTO) 80.5 % (40.0-70.0); PLATELET COUNT (AUTO) 270 K/uL (130-430); RED BLOOD CELL COUNT(AUTO) 2.57 MIL/uL (4.2-6.2); RED CELL DISTRIBUTION WIDTH 16.4 % (9.0-15.0); WHITE BLOOD COUNT (AUTO) 10.8 K/uL (4.8-10.8)
[2022-07-18 08:20] LABS: ERYTHROCYTE SEDIMENTATION RATE 49 MM/HR (0-15)
[2022-07-18] MEDS: BALSAM PERU/CASTOR OIL 56.7 GM OINT...G. TP SCH (09:07)
[2022-07-18] MEDS ORDERED: POTASSIUM CHLORIDE 20 MEQ TAB.PRT.SR NG ONE (09:30)
[2022-07-18] MEDS: LEVOFLOXACIN 250 MG/D5W 50 ML IV SCH (10:08)
[2022-07-18] MEDS: PANTOPRAZOLE SODIUM 40 MG/VIAL (PROTONIX) IVP SCH (10:08)
[2022-07-18] MEDS: ENOXAPARIN SODIUM 80 MG/0.8 ML SYRINGE SUBCUT SCH ×2 (10:09→20:53)
[2022-07-18] MEDS: INSULIN NPH 100 UNITS/ML 10 ML VIAL SUBCUT SCH ×2 (10:09→20:55)
[2022-07-18] MEDS: PROPOFOL DRIP 100 ML IV PRN (10:11)
[2022-07-19] VITALS (26 sets, daily range): BP systolic 89–147
[2022-07-19] MEDS: IPRATROPIUM/ALBUTEROL SULFATE 3 ML AMPUL.NEB (DUONEB) INH SCH ×6 (03:11→23:29)
[2022-07-19] MEDS: DILTIAZEM HCL 30 MG TABLET PO SCH ×4 (05:33→23:33)
[2022-07-19 07:39] LABS: ALBUMIN 1.5 g/dL (3.4-4.8); C-REACTIVE PROTEIN QUANT 2.1 mg/dL (0-0.5); CALCIUM 8.7 mg/dL (8.4-11.0); CREATININE 0.79 mg/dL (0.55-1.30); PHOSPHORUS 2.8 mg/dL (2.7-4.5); TOTAL BILIRUBIN 0.2 mg/dL (0.0-1.0)
[2022-07-19 07:40] LABS: BASOPHILS # (AUTO) 0.1 K/uL (0.0-0.2); BASOPHILS % (AUTO) 1.3 % (0.0-2.0); EOSINOPHILS # (AUTO) 0.1 K/uL (0.0-0.4); EOSINOPHILS % (AUTO) 1.3 % (0.0-4.0); HEMATOCRIT 29.8 % (36-54); HEMOGLOBIN 9.7 g/dL (14.0-18.0); LYMPHOCYTES # (AUTO) 1.4 K/uL (1.0-5.5); LYMPHOCYTES % (AUTO) 12.6 % (20.5-51.5); MEAN CORPUSCULAR HEMOGLOBIN 32 pg (27-31); MEAN CORPUSCULAR HGB CONC 33 % (32-36); MEAN CORPUSCULAR VOLUME 98 fL (79.0-98.0); MONOCYTES # (AUTO) 0.6 K/uL (0.0-1.0); MONOCYTES % (AUTO) 5.3 % (1.7-9.3); NEUTROPHILS % (AUTO) 79.5 % (40.0-70.0); PLATELET COUNT (AUTO) 271 K/uL (130-430); RED BLOOD CELL COUNT(AUTO) 3.04 MIL/uL (4.2-6.2); RED CELL DISTRIBUTION WIDTH 16.9 % (9.0-15.0); WHITE BLOOD COUNT (AUTO) 11.3 K/uL (4.8-10.8)
[2022-07-19 08:42] LABS: ERYTHROCYTE SEDIMENTATION RATE 50 MM/HR (0-15)
[2022-07-19] MEDS: INSULIN NPH 100 UNITS/ML 10 ML VIAL SUBCUT SCH ×2 (09:00→20:22)
[2022-07-19] MEDS: PANTOPRAZOLE SODIUM 40 MG/VIAL (PROTONIX) IVP SCH (10:00)
[2022-07-19] MEDS: BALSAM PERU/CASTOR OIL 56.7 GM OINT...G. TP SCH (10:00)
[2022-07-19] MEDS: ENOXAPARIN SODIUM 80 MG/0.8 ML SYRINGE SUBCUT SCH ×2 (10:00→20:24)
[2022-07-19] MEDS: LEVOFLOXACIN 250 MG/D5W 50 ML IV SCH (10:10)
[2022-07-20] VITALS (12 sets, daily range): BP systolic 102–137
[2022-07-20] MEDS: IPRATROPIUM/ALBUTEROL SULFATE 3 ML AMPUL.NEB (DUONEB) INH SCH ×6 (03:17→23:13)
[2022-07-20] MEDS: DILTIAZEM HCL 30 MG TABLET PO SCH ×3 (05:24→18:20)
[2022-07-20 07:22] LABS: BASOPHILS # (AUTO) 0.1 K/uL (0.0-0.2); BASOPHILS % (AUTO) 1.3 % (0.0-2.0); EOSINOPHILS # (AUTO) 0.1 K/uL (0.0-0.4); EOSINOPHILS % (AUTO) 0.9 % (0.0-4.0); HEMATOCRIT 27.3 % (36-54); LYMPHOCYTES # (AUTO) 1.4 K/uL (1.0-5.5); LYMPHOCYTES % (AUTO) 16.2 % (20.5-51.5); MEAN CORPUSCULAR HEMOGLOBIN 31 pg (27-31); MEAN CORPUSCULAR HGB CONC 33 % (32-36); MEAN CORPUSCULAR VOLUME 95 fL (79.0-98.0); MONOCYTES # (AUTO) 0.4 K/uL (0.0-1.0); MONOCYTES % (AUTO) 4.2 % (1.7-9.3); NEUTROPHILS # (AUTO) 6.6 K/uL (1.8-7.7); NEUTROPHILS % (AUTO) 77.4 % (40.0-70.0); PLATELET COUNT (AUTO) 381 K/uL (130-430); RED BLOOD CELL COUNT(AUTO) 2.87 MIL/uL (4.2-6.2); RED CELL DISTRIBUTION WIDTH 16.8 % (9.0-15.0); WHITE BLOOD COUNT (AUTO) 8.6 K/uL (4.8-10.8)
[2022-07-20 07:40] LABS: C-REACTIVE PROTEIN QUANT 2.1 mg/dL (0-0.5); CALCIUM 8.6 mg/dL (8.4-11.0); CREATININE 0.72 mg/dL (0.55-1.30)
[2022-07-20 08:11] LABS: ERYTHROCYTE SEDIMENTATION RATE 63 MM/HR (0-15)
[2022-07-20] MEDS: PANTOPRAZOLE SODIUM 40 MG/VIAL (PROTONIX) IVP SCH (08:42)
[2022-07-20] MEDS: LEVOFLOXACIN 250 MG/D5W 50 ML IV SCH (08:45)
[2022-07-20] MEDS: ENOXAPARIN SODIUM 80 MG/0.8 ML SYRINGE SUBCUT SCH ×2 (09:19→21:16)
[2022-07-20] MEDS: BALSAM PERU/CASTOR OIL 56.7 GM OINT...G. TP SCH (09:20)
[2022-07-20] MEDS: INSULIN NPH 100 UNITS/ML 10 ML VIAL SUBCUT SCH (09:24)
[2022-07-20] MEDS: ACETAMINOPHEN 650 MG/20.3 ML UDC GT PRN (09:25)
[2022-07-20] MEDS ORDERED: POTASSIUM CHLORIDE 20 MEQ TAB.PRT.SR PO ONE (10:45)
[2022-07-20] MEDS: INSULIN REGULAR, HUMAN 100 UNITS/ML, 3 ML VIAL (humuLIN R) SUBCUT PRN (12:06)
[2022-07-20] MEDS: INSULIN GLARGINE 100 UNITS/ML, 10 ML VIAL SUBCUT SCH (21:18)
[2022-07-21] MEDS: DILTIAZEM HCL 30 MG TABLET PO SCH ×5 (00:05→23:34)
[2022-07-21 00:12] VITALS: BP_SYST 157
[2022-07-21] MEDS: IPRATROPIUM/ALBUTEROL SULFATE 3 ML AMPUL.NEB (DUONEB) INH SCH ×6 (03:26→23:24)
[2022-07-21 07:25] LABS: BASOPHILS % (AUTO) 0.5 % (0.0-2.0); EOSINOPHILS # (AUTO) 0.1 K/uL (0.0-0.4); EOSINOPHILS % (AUTO) 0.8 % (0.0-4.0); HEMATOCRIT 28.7 % (36-54); HEMOGLOBIN 9.6 g/dL (14.0-18.0); LYMPHOCYTES # (AUTO) 1.4 K/uL (1.0-5.5); MEAN CORPUSCULAR HEMOGLOBIN 32 pg (27-31); MEAN CORPUSCULAR HGB CONC 33 % (32-36); MEAN CORPUSCULAR VOLUME 97 fL (79.0-98.0); MONOCYTES # (AUTO) 0.3 K/uL (0.0-1.0); MONOCYTES % (AUTO) 3.8 % (1.7-9.3); NEUTROPHILS # (AUTO) 5.7 K/uL (1.8-7.7); NEUTROPHILS % (AUTO) 75.9 % (40.0-70.0); PLATELET COUNT (AUTO) 314 K/uL (130-430); RED BLOOD CELL COUNT(AUTO) 2.98 MIL/uL (4.2-6.2); RED CELL DISTRIBUTION WIDTH 17.4 % (9.0-15.0); WHITE BLOOD COUNT (AUTO) 7.5 K/uL (4.8-10.8)
[2022-07-21 08:00] VITALS: BP_SYST 130
[2022-07-21 08:06] LABS: C-REACTIVE PROTEIN QUANT 1.9 mg/dL (0-0.5); CALCIUM 8.7 mg/dL (8.4-11.0); CREATININE 0.72 mg/dL (0.55-1.30)
[2022-07-21 08:10] LABS: ERYTHROCYTE SEDIMENTATION RATE 66 MM/HR (0-15)
[2022-07-21] MEDS: PANTOPRAZOLE SODIUM 40 MG/VIAL (PROTONIX) IVP SCH (08:27)
[2022-07-21] MEDS: LEVOFLOXACIN 250 MG/D5W 50 ML IV SCH (08:27)
[2022-07-21] MEDS: ENOXAPARIN SODIUM 80 MG/0.8 ML SYRINGE SUBCUT SCH ×2 (08:27→22:15)
[2022-07-21] MEDS: INSULIN GLARGINE 100 UNITS/ML, 10 ML VIAL SUBCUT SCH ×2 (08:30→22:36)
[2022-07-21] MEDS: BALSAM PERU/CASTOR OIL 56.7 GM OINT...G. TP SCH (08:37)
[2022-07-21] MEDS ORDERED: CAR30 PO (10:31)
[2022-07-21] MEDS ORDERED: INSU100V53 SQ (10:31)
[2022-07-21] MEDS ORDERED: LOVI80 SUBCUT (10:31)
[2022-07-21 10:46] VITALS: BP_SYST 130
[2022-07-21 11:26] VITALS: BP_SYST 131
[2022-07-21] MEDS: INSULIN LISPRO SLIDING SCALE 100 UNITS/ML, 3 ML VIAL (humaLOG) SUBCUT PRN ×3 (12:24→22:30)
[2022-07-21 15:39] VITALS: BP_SYST 125
[2022-07-22] VITALS (7 sets, daily range): BP systolic 110–155
[2022-07-22] MEDS: IPRATROPIUM/ALBUTEROL SULFATE 3 ML AMPUL.NEB (DUONEB) INH SCH ×5 (03:52→23:17)
[2022-07-22] MEDS: DILTIAZEM HCL 30 MG TABLET PO SCH ×3 (05:50→18:23)
[2022-07-22 07:03] LABS: BASOPHILS % (AUTO) 0.6 % (0.0-2.0); EOSINOPHILS # (AUTO) 0.1 K/uL (0.0-0.4); EOSINOPHILS % (AUTO) 1.5 % (0.0-4.0); HEMATOCRIT 27.1 % (36-54); LYMPHOCYTES # (AUTO) 1.4 K/uL (1.0-5.5); LYMPHOCYTES % (AUTO) 19.6 % (20.5-51.5); MEAN CORPUSCULAR HEMOGLOBIN 32 pg (27-31); MEAN CORPUSCULAR HGB CONC 33 % (32-36); MEAN CORPUSCULAR VOLUME 96 fL (79.0-98.0); MONOCYTES # (AUTO) 0.2 K/uL (0.0-1.0); MONOCYTES % (AUTO) 2.7 % (1.7-9.3); NEUTROPHILS # (AUTO) 5.2 K/uL (1.8-7.7); NEUTROPHILS % (AUTO) 75.6 % (40.0-70.0); PLATELET COUNT (AUTO) 335 K/uL (130-430); RED BLOOD CELL COUNT(AUTO) 2.82 MIL/uL (4.2-6.2); RED CELL DISTRIBUTION WIDTH 17.3 % (9.0-15.0); WHITE BLOOD COUNT (AUTO) 6.9 K/uL (4.8-10.8)
[2022-07-22 07:25] LABS: ALBUMIN 1.9 g/dL (3.4-4.8); C-REACTIVE PROTEIN QUANT 1.9 mg/dL (0-0.5); CALCIUM 8.4 mg/dL (8.4-11.0); CREATININE 0.83 mg/dL (0.55-1.30); PHOSPHORUS 2.3 mg/dL (2.7-4.5); TOTAL BILIRUBIN 0.3 mg/dL (0.0-1.0)
[2022-07-22] MEDS ORDERED: POTASSIUM CHLORIDE 20 MEQ TAB.PRT.SR PO ONE (08:30)
[2022-07-22 08:53] LABS: ERYTHROCYTE SEDIMENTATION RATE 61 MM/HR (0-15)
[2022-07-22] MEDS: LEVOFLOXACIN 250 MG/D5W 50 ML IV SCH (09:09)
[2022-07-22] MEDS: PANTOPRAZOLE SODIUM 40 MG/VIAL (PROTONIX) IVP SCH (09:10)
[2022-07-22] MEDS: ENOXAPARIN SODIUM 80 MG/0.8 ML SYRINGE SUBCUT SCH ×2 (09:14→22:18)
[2022-07-22] MEDS ORDERED: K PHOS 15 MM in NS 250 ML IV ONE (09:15)
[2022-07-22] MEDS: INSULIN GLARGINE 100 UNITS/ML, 10 ML VIAL SUBCUT SCH ×2 (09:16→22:33)
[2022-07-22] MEDS: BALSAM PERU/CASTOR OIL 56.7 GM OINT...G. TP SCH (09:29)
[2022-07-22] MEDS ORDERED: CARVEDILOL 6.25 MG TABLET (COREG) PO ONE (11:15)
[2022-07-22] MEDS: INSULIN LISPRO SLIDING SCALE 100 UNITS/ML, 3 ML VIAL (humaLOG) SUBCUT PRN ×2 (12:02→18:30)
[2022-07-22] MEDS ORDERED: CARVEDILOL 6.25 MG TABLET (COREG) PO SCH (21:00)
[2022-07-22] MEDS ORDERED: ACETAMINOPHEN 325 MG TABLET ONE (22:39)
[2022-07-22] MEDS: ACETAMINOPHEN 650 MG/20.3 ML UDC GT PRN (22:42)
== END 2022-07-23 01:41 | DRG 870 ==
LOC: SED 01:57 → STU 05:22 → SIC 10:30 → STU 07-20 05:42
PROVIDERS: ADMIT Preventive Medicine Preventive Medicine/Occupational Environmental Medicine; ATTEND Preventive Medicine Preventive Medicine/Occupational Environmental Medicine
PROC: 5A1955Z Respiratory Ventilation, Greater than 96 Consecutive Hours (ICD-10-PCS; principal; 2022-07-06)
PROC: 0BH17EZ Insertion of Endotracheal Airway into Trachea, Via Natural or Artificial Opening (ICD-10-PCS; 2022-07-06)
PROC: 5A0935A Assistance with Respiratory Ventilation, Less than 24 Consecutive Hours, High Flow/Velocity Cannula (ICD-10-PCS; 2022-07-06)
PROC: 02HV33Z Insertion of Infusion Device into Superior Vena Cava, Percutaneous Approach (ICD-10-PCS; 2022-07-06)
PROC: 5A0935A Assistance with Respiratory Ventilation, Less than 24 Consecutive Hours, High Flow/Velocity Cannula (ICD-10-PCS; 2022-07-19)
PROC: 5A0935A Assistance with Respiratory Ventilation, Less than 24 Consecutive Hours, High Flow/Velocity Cannula (ICD-10-PCS; 2022-07-20)
DX: A41.51 Sepsis due to Escherichia coli [E. coli] (principal); R65.21 Severe sepsis with septic shock; J96.01 Acute respiratory failure with hypoxia; J15.6 Pneumonia due to other Gram-negative bacteria; E43 Unspecified severe protein-calorie malnutrition; N12 Tubulo-interstitial nephritis, not specified as acute or chronic; I48.20 Chronic atrial fibrillation, unspecified; E87.0 Hyperosmolality and hypernatremia; N17.9 Acute kidney failure, unspecified; E87.20 Acidosis, unspecified; Z16.24 Resistance to multiple antibiotics; E87.1 Hypo-osmolality and hyponatremia; Z99.11 Dependence on respirator [ventilator] status; Z20.822 Contact with and (suspected) exposure to COVID-19; I12.9 Hypertensive chronic kidney disease with stage 1 through stage 4 chronic kidney disease, or unspecified chronic kidney disease; E11.22 Type 2 diabetes mellitus with diabetic chronic kidney disease; N18.9 Chronic kidney disease, unspecified; F20.9 Schizophrenia, unspecified; G40.909 Epilepsy, unspecified, not intractable, without status epilepticus; K74.60 Unspecified cirrhosis of liver; D64.9 Anemia, unspecified; E87.6 Hypokalemia; E11.65 Type 2 diabetes mellitus with hyperglycemia; R74.01 Elevation of levels of liver transaminase levels; E88.09 Other disorders of plasma-protein metabolism, not elsewhere classified; I95.9 Hypotension, unspecified; R86.0 Abnormal level of enzymes in specimens from male genital organs; E83.39 Other disorders of phosphorus metabolism; E83.41 Hypermagnesemia; R13.10 Dysphagia, unspecified; Z87.891 Personal history of nicotine dependence; Z79.4 Long term (current) use of insulin; Z79.01 Long term (current) use of anticoagulants; Z68.24 Body mass index [BMI] 24.0-24.9, adult; Z88.0 Allergy status to penicillin
CPT/HCPCS: 36415; 36600; 70450-TC; 71045; 76376; 76700-TC; 80048; 80053; 80076; 80156; 80162; 81000; 82800-TC; 82803-TC; 82962; 83605; 83735; 83880; 84100; 84132; 84484; 85025; 85651-TC; 86140; 86704; 86706; 86803; 87040; 87070-TC; 87081; 87086; 87205-TC; 87340; 92610-GN; 93005; 93306; 93970; 94002; 94003; 94640; 94760; 96361; 96365; 96375; 97110-GP; 97163-GP; 97530-GP; 99291; C9113; G0378; J0330; J1160; J1650; J1815; J1956; J2543; J2704; J3480; J3490; J7050; J7060

== ENCOUNTER 2023-11-08 10:39 | Inpatient (IN) | payer OTHER, MEDICAID ==
[~2023-11-08] VITALS: Ht 188 cm; Wt 80.7 kg
[2023-11-08] VITALS (14 sets, daily range): BP systolic 77–139; PULSE 78–126; RESP 16–40; TEMP 96.8–100.2; O2SAT 94–100
[~2023-11-08 10:39] MED LIST changes: +ACET-73 PO; +ALBU2.5V7 INH; +AMIO200T66 PO; +APIX5TAB PO; +BEN50 PO; +BISA-79 RC; +CAR30 PO; +DIAZ10TA4 PO; +DIGO125T PO; +DOCU-144 PO; +FAMO20TA8 PO; -FOLI-43 PO; +FURO-149 PO; +HYDR-4284 PO; +INSU100V53 SQ; +INSU100V7 SUBCUT; +IPRA4AER INH; +LACT10SO7 PO; +LEVE500S9 PO; +LOVI80 SUBCUT; +METO-442 PO; -NAPR-1172 PO; -OLAN20TA3 PO; -PARO-148 PO; -THIA100T13 PO
[2023-11-08] MEDS ORDERED: IPRATROPIUM BROM 0.5 MG/2.5 ML VIAL.NEB (ATROVENT) INH ONE (10:49)
[2023-11-08] MEDS ORDERED: ALBUTEROL SULFATE 0.083% 2.5 MG/3 ML VIAL.NEB INH ONE (10:49)
[2023-11-08] MEDS: IPRATROPIUM BROM 0.5 MG/2.5 ML VIAL.NEB (ATROVENT) INH ONE (10:57)
[2023-11-08] MEDS: ALBUTEROL SULFATE 0.083% 2.5 MG/3 ML VIAL.NEB INH ONE (10:57)
[2023-11-08] MEDS: DILTIAZEM HCL 60 MG TABLET PO ONE (11:14)
[2023-11-08] MEDS: dilTIAZem HCL IVP 5 MG/ML VIAL IVP ONE (11:14)
[2023-11-08] MEDS ORDERED: MELA5TAB12 PO (11:31)
[2023-11-08] MEDS ORDERED: LATA2.5D14 OP (11:31)
[2023-11-08] MEDS ORDERED: [UNRECOGNIZED DRUG - CODE] (11:31)
[2023-11-08] MEDS ORDERED: DICL20GE (11:31)
[2023-11-08] MEDS ORDERED: MOM PO (11:31)
[2023-11-08] MEDS ORDERED: ASCO500T20 PO (11:31)
[2023-11-08] MEDS ORDERED: ERGO1250 (11:31)
[2023-11-08] MEDS ORDERED: SENN8.6T19 PO (11:31)
[2023-11-08] MEDS ORDERED: INSU300I10 SQ (11:31)
[2023-11-08] MEDS ORDERED: INSU100V7 SUBCUT (11:32)
[2023-11-08] MEDS ORDERED: NEU100 PO (11:35)
[2023-11-08] MEDS ORDERED: CARB100T PO (11:35)
[2023-11-08] MEDS ORDERED: IPRA4AER INH (11:35)
[2023-11-08] MEDS ORDERED: ARIP5TAB10 PO (11:35)
[2023-11-08] MEDS ORDERED: LIDOINT TP (11:35)
[2023-11-08 11:52] LABS: BASOPHILS # (AUTO) 0.2 K/uL (0.0-0.2); BASOPHILS % (AUTO) 0.5 % (0.0-2.0); EOSINOPHILS % (AUTO) 0.1 % (0.0-4.0); HEMATOCRIT 28.9 % (36-54); HEMOGLOBIN 9.7 g/dL (14.0-18.0); LYMPHOCYTES # (AUTO) 1.1 K/uL (1.0-5.5); LYMPHOCYTES % (AUTO) 3.8 % (20.5-51.5); MEAN CORPUSCULAR HEMOGLOBIN 29 pg (27-31); MEAN CORPUSCULAR HGB CONC 34 % (32-36); MEAN CORPUSCULAR VOLUME 86 fL (79.0-98.0); NEUTROPHILS # (AUTO) 25.6 K/uL (1.8-7.7); NEUTROPHILS % (AUTO) 88.6 % (40.0-70.0); PLATELET COUNT (AUTO) 361 K/uL (130-430); RED BLOOD CELL COUNT(AUTO) 3.37 MIL/uL (4.2-6.2); RED CELL DISTRIBUTION WIDTH 18.9 % (9.0-15.0); WHITE BLOOD COUNT (AUTO) 28.9 K/uL (4.8-10.8)
[2023-11-08] MEDS ORDERED: cefTRIAXone 2 GM VIAL ONE (12:05)
[2023-11-08] MEDS: NACL 0.9% 1,000 ML IV ONE ×3 (12:10→16:58)
[2023-11-08 12:22] LABS: INR 1.3 (0.80-1.20); PROTHROMBIN TIME 13.2 SECS (9.5-12.5)
[2023-11-08 13:09] LABS: ALANINE AMINOTRANSFERASE 28 U/L (12-78); ALBUMIN 2.7 g/dL (3.4-4.8); ANION GAP 18 (5-15); ASPARTATE AMINOTRANSFERASE 62 U/L (10-37); BILIRUBIN,DIRECT 0.2 mg/dL (0.0-0.3); CALCIUM 9.4 mg/dL (8.4-11.0); CARBON DIOXIDE 14 mmol/L (23-29); CHLORIDE 98 mmol/L (98-107); CREATINE KINASE, TOTAL 474 U/L (39-308); CREATININE 3.68 mg/dL (0.55-1.30); GFR AFRICAN AMERICAN 21 mL/min (>90); POTASSIUM 4.7 mmol/L (3.5-5.1); SODIUM SERUM 130 mmol/L (136-145); TOTAL BILIRUBIN 0.5 mg/dL (0.0-1.0); TOTAL PROTEIN, SERUM 7.8 g/dL (6.4-8.3); UREA NITROGEN, BLOOD 44 mg/dL (8-21)
[2023-11-08 13:11] LABS: GFR NON AFRICAN-AMERICAN 18 mL/min (>90)
[2023-11-08 13:13] LABS: GLUCOSE 406 mg/dL (74-106)
[2023-11-08] MEDS ORDERED: NOREPINEPHRINE 4 MG/4 ML VIAL IV ONE (13:30)
[2023-11-08] MEDS: NS 500 ML IV ONE (13:34)
[2023-11-08 13:41] LABS: CKMB RELATIVE INDEX 4.9 (0.0-2.9)
[2023-11-08] MEDS: NOREPINEPHRINE BITARTRATE 4 MG in NS 246 ML IV ONE (13:47)
[2023-11-08 13:56] LABS: ABG O2 SAT% ESTIMATE 97.2 % (94.0-100.0); BLOOD GAS BASE EXCESS -11.5 mmol/L (-3.0-3.0); BLOOD GAS PCO2 20.4 mmHg (32.0-45.0); BLOOD GAS PH 7.387 (7.350-7.450); BLOOD GAS PO2 92.8 mmHg (75.0-100.0)
[2023-11-08 13:58] LABS: ALLEN'S TEST POSITIVE (P)
[2023-11-08] MEDS: KETAMINE HCL IN 0.9 % NACL 50 MG/5 ML SYRINGE IVP ONE (13:59)
[2023-11-08] MEDS ORDERED: ONDANSETRON HCL 4 MG/2 ML VIAL IVP PRN (14:00)
[2023-11-08] MEDS ORDERED: ALBUMIN HUMAN 25% 50 ML IV ONE (14:30)
[2023-11-08] MEDS ORDERED: DIPHENHYDRAMINE HCL 50 MG CAPSULE PO PRN (14:30)
[2023-11-08] MEDS ORDERED: D5W 1,000 ML IV PRN (14:30)
[2023-11-08] MEDS ORDERED: BISACODYL 5 MG TABLET.DR (DULCOLAX) PO PRN (14:30)
[2023-11-08] MEDS ORDERED: GLUCOSE (DEXTROSE) ORAL GEL -Adults PO PRN (14:30)
[2023-11-08] MEDS ORDERED: INSULIN REGULAR, HUMAN 10 UNITS/0.1 ML, 3 ML VIAL IVP ONE (14:30)
[2023-11-08] MEDS ORDERED: DEXTROSE 50% JECT 50 ML DISP.SYRIN IVP PRN (14:30)
[2023-11-08] MEDS: VANCOMYCIN HCL 1,500 MG in NS 250 ML IV ONE (15:00)
[2023-11-08] MEDS: ALBUMIN HUMAN 25% 100 ML IV ONE (16:57)
[2023-11-08] MEDS: INSULIN REGULAR, HUMAN 100 UNITS/ML, 3 ML VIAL (humuLIN R) SUBCUT PRN (17:14)
[2023-11-08] MEDS ORDERED: LATANOPROST 2.5 ML DROPS (XALATAN) OP SCH (18:00)
[2023-11-08] MEDS ORDERED: NOREPINEPHRINE BITARTRATE 4 MG in NS 246 ML IV PRN (20:15)
[2023-11-08] MEDS: DABIGATRAN ETEXILATE MESYLATE 75 MG CAPSULE PO SCH (20:36)
[2023-11-08] MEDS: AMIODARONE HCL 200 MG TABLET PO SCH (20:37)
[2023-11-08] MEDS: levETIRAcetam 500 MG TABLET PO SCH (20:38)
[2023-11-08] MEDS: ASCORBIC ACID 500 MG TABLET PO SCH (20:39)
[2023-11-08] MEDS: MORPHINE 2 MG/ML INJ. SYRINGE IVP PRN (20:40)
[2023-11-08] MEDS: IPRATROPIUM/ALBUTEROL SULFATE 3 ML AMPUL.NEB (DUONEB) INH PRN (20:40)
[2023-11-08] MEDS: LORazepam 2 MG/ML VIAL IVP PRN (20:43)
[2023-11-08] MEDS ORDERED: NON-FORMULARY MEDICATION (Levetiracetam 500 MG) PO SCH (21:00)
[2023-11-08] MEDS ORDERED: APIXABAN 2.5 MG TABLET PO SCH (21:00)
[2023-11-08] MEDS ORDERED: INSULIN GLARGINE 100 UNITS/ML, 10 ML VIAL SQ SCH (21:00)
[2023-11-08] MEDS: INSULIN GLARGINE 100 UNITS/ML, 10 ML VIAL SUBCUT SCH (22:13)
[2023-11-08] MEDS: NOREPINEPHRINE 4 MG/4 ML VIAL IV ONE (23:00)
[2023-11-09] VITALS (9 sets, daily range): BP systolic 88–126; PULSE 44–121; RESP 22–35; TEMP 99.3–102.7; O2SAT 95–100
[2023-11-09] MEDS ORDERED: NACL 0.9% 1,000 ML IV SCH
[2023-11-09] MEDS: ACETAMINOPHEN 325 MG TABLET PO PRN (00:19)
[2023-11-09] MEDS ORDERED: MEROPENEM 500 MG IVPB PREMIX 50 ML IV SCH (00:45)
[2023-11-09] MEDS ORDERED: MEROPENEM 500 MG VIAL IV ONE (02:02)
[2023-11-09] MEDS: MEROPENEM 500 MG IVPB PREMIX 50 ML IV SCH (02:35)
[2023-11-09 03:46] LABS: BASOPHILS # (AUTO) 0.1 K/uL (0.0-0.2); BASOPHILS % (AUTO) 0.6 % (0.0-2.0); HEMATOCRIT 25.2 % (36-54); HEMOGLOBIN 8.5 g/dL (14.0-18.0); LYMPHOCYTES # (AUTO) 1.1 K/uL (1.0-5.5); LYMPHOCYTES % (AUTO) 5.2 % (20.5-51.5); MEAN CORPUSCULAR HEMOGLOBIN 29 pg (27-31); MEAN CORPUSCULAR HGB CONC 34 % (32-36); MEAN CORPUSCULAR VOLUME 86 fL (79.0-98.0); MONOCYTES # (AUTO) 1.3 K/uL (0.0-1.0); NEUTROPHILS # (AUTO) 19.1 K/uL (1.8-7.7); NEUTROPHILS % (AUTO) 88.2 % (40.0-70.0); PLATELET COUNT (AUTO) 343 K/uL (130-430); RED BLOOD CELL COUNT(AUTO) 2.91 MIL/uL (4.2-6.2); RED CELL DISTRIBUTION WIDTH 18.4 % (9.0-15.0); WHITE BLOOD COUNT (AUTO) 21.6 K/uL (4.8-10.8)
[2023-11-09 03:56] LABS: ALANINE AMINOTRANSFERASE 24 U/L (12-78); ALBUMIN 2.5 g/dL (3.4-4.8); ANION GAP 14 (5-15); ASPARTATE AMINOTRANSFERASE 83 U/L (10-37); CALCIUM 8.4 mg/dL (8.4-11.0); CARBON DIOXIDE 13 mmol/L (23-29); CHLORIDE 104 mmol/L (98-107); CREATININE 3.71 mg/dL (0.55-1.30); GFR AFRICAN AMERICAN 21 mL/min (>90); GLUCOSE 308 mg/dL (74-106); POTASSIUM 4.5 mmol/L (3.5-5.1); SODIUM SERUM 131 mmol/L (136-145); TOTAL BILIRUBIN 0.5 mg/dL (0.0-1.0); UREA NITROGEN, BLOOD 48 mg/dL (8-21)
[2023-11-09 04:07] LABS: GFR NON AFRICAN-AMERICAN 17 mL/min (>90)
[2023-11-09] MEDS ORDERED: NOREPINEPHRINE BITARTRATE 4 MG in NS 246 ML IV PRN (04:45)
[2023-11-09 04:58] LABS: VANCOMYCIN,RANDOM 19.5 ug/mL (20.0-30.0)
[2023-11-09] MEDS ORDERED: ETOMIDATE 20 MG/ 10 ML VIAL (AMIDATE) ONE (06:30)
[2023-11-09] MEDS ORDERED: EPINEPHrine JECT 0.1 MG/ML SYR ONE (06:45)
[2023-11-09] MEDS ORDERED: NOREPINEPHRINE 4 MG/4 ML VIAL IV ONE (06:53)
[2023-11-09] MEDS ORDERED: VASOPRESSIN IV PRN (07:00)
[2023-11-09] MEDS ORDERED: D5W IV PRN (07:00)
[2023-11-09] MEDS ORDERED: VASOPRESSIN 20 UNITS/ML VIAL IV ONE (07:00)
[2023-11-09] MEDS ORDERED: CALCIUM CHLORIDE 1 GM/10 ML DISP.SYRIN (14 mEq Ca++/SYR) ONE (07:13)
[2023-11-09] MEDS ORDERED: OLANZapine 5 MG TABLET PO SCH (09:00)
[2023-11-09] MEDS ORDERED: ERGOCALCIFEROL 8000 UNITS/ML ORAL SOLUTION, 60 ML BOTTLE PO SCH (09:00)
[2023-11-09] MEDS ORDERED: INSULIN GLARGINE 100 UNITS/ML, 10 ML VIAL SQ SCH (09:00)
[2023-11-09] MEDS ORDERED: ARIPiprazole 5 MG TAB PO SCH (09:00)
[2023-11-10] MEDS ORDERED: LEVOFLOXACIN 250 MG/D5W 50 ML IV SCH (09:00)
== END 2023-11-09 10:45 | DRG 871 ==
LOC: SED 10:39 → SIC 13:55
PROVIDERS: ADMIT Internal Medicine; ATTEND Internal Medicine
PROC: 5A0935A Assistance with Respiratory Ventilation, Less than 24 Consecutive Hours, High Flow/Velocity Cannula (ICD-10-PCS; principal; 2023-11-08)
PROC: 5A09357 Assistance with Respiratory Ventilation, Less than 24 Consecutive Hours, Continuous Positive Airway Pressure (ICD-10-PCS; 2023-11-08)
PROC: 02HV33Z Insertion of Infusion Device into Superior Vena Cava, Percutaneous Approach (ICD-10-PCS; 2023-11-08)
PROC: B548ZZA Ultrasonography of Superior Vena Cava, Guidance (ICD-10-PCS; 2023-11-08)
PROC: 5A09357 Assistance with Respiratory Ventilation, Less than 24 Consecutive Hours, Continuous Positive Airway Pressure (ICD-10-PCS; 2023-11-09)
DX: A41.9 Sepsis, unspecified organism (principal); I21.A1 Myocardial infarction type 2; R65.21 Severe sepsis with septic shock; J96.01 Acute respiratory failure with hypoxia; J18.9 Pneumonia, unspecified organism; N17.9 Acute kidney failure, unspecified; I48.20 Chronic atrial fibrillation, unspecified; E87.1 Hypo-osmolality and hyponatremia; E87.20 Acidosis, unspecified; I13.0 Hypertensive heart and chronic kidney disease with heart failure and stage 1 through stage 4 chronic kidney disease, or unspecified chronic kidney disease; N18.4 Chronic kidney disease, stage 4 (severe); E11.22 Type 2 diabetes mellitus with diabetic chronic kidney disease; E78.5 Hyperlipidemia, unspecified; I50.9 Heart failure, unspecified; F20.9 Schizophrenia, unspecified; G40.909 Epilepsy, unspecified, not intractable, without status epilepticus; Z87.891 Personal history of nicotine dependence; Z87.440 Personal history of urinary (tract) infections; Z79.899 Other long term (current) drug therapy; Z79.4 Long term (current) use of insulin; Z79.02 Long term (current) use of antithrombotics/antiplatelets; Z79.01 Long term (current) use of anticoagulants
CPT/HCPCS: 36415; 36600; 71045; 80048; 80053; 80076; 80162; 80202; 82009; 82542; 82550; 82553; 82803; 82948; 83605; 83735; 83880; 84484; 85025; 85610; 85730; 87040; 87081; 92950; 93005; 93306; 94070; 94640; 94660; 94760; 96365; 96367; 96368; 99291; J0171; J0461; J0696; J1815; J1956; J2060; J2185; J2270; J3370; J3490; J7050; J7060